=== PATIENT | female | born 1960 | race Asian ===

== ENCOUNTER 2017-12-06 14:47 | Emergency (ER) | payer BC ==
[2017-12-06 15:46] VITALS: BP 174/66
--- NOTE | 2017-12-06 16:10 | EDM.PDOC ---
ED HPI GENERAL MEDICAL PROBLEM - General Chief Complaint: Eye Problems Stated Complaint: RT EYE PAIN Time Seen by Provider: 12/06/17 16:10 Source of Information: Reports: Patient History Limitations: Reports: No Limitations - History of Present Illness INITIAL COMMENTS - FREE TEXT/NARRATIVE: pt started yesterday with slight redness in thre rt eye. Today it is more swollen and uncomfortable. Onset: Gradual Duration: Hour(s): Location: Reports: Face Associated Symptoms: Reports: No Other Symptoms right eye Pain Score (Numeric/FACES): 3 - Related Data Allergies Allergy/AdvReac Type Severity Reaction Status Date / Time hydroxychloroquine Allergy Rash Verified 12/06/17 15:41 Latex, Natural Rubber Allergy Rash Verified 12/06/17 15:41 radish Allergy Itching Verified 12/06/17 15:41 Home Meds: Home Meds Meloxicam [Meloxicam] 15 mg PO BEDTIME 03/18/15 [History] Gabapentin [Neurontin] 100 mg PO BID 12/06/17 [History] Lisinopril/Hydrochlorothiazide [Lisinopril-Hctz 10-12.5 mg Tab] 1 tab PO DAILY 12/06/17 [History] Potassium Chloride 10 meq PO BID 12/06/17 [History] Past Medical History HEENT History: Reports: Other (See Below) Other HEENT History: seasonal allergies Cardiovascular History: Reports: Hypertension Genitourinary History: Reports: Renal Calculus Musculoskeletal History: Reports: Osteoarthritis - Past Surgical History Cardiovascular Surgical History: Reports: None Female Surgical History: Reports: Kidney stone extraction Social & Family History - Tobacco Use Smoking Status *Q: Never Smoker Second Hand Smoke Exposure: No - Alcohol Use Days Per Week of Alcohol Use: 0 - Recreational Drug Use Recreational Drug Use: No ED ROS GENERAL - Review of Systems Review Of Systems: See Below Constitutional: Reports: No Symptoms HEENT: Reports: Eye Pain Respiratory: Reports: No Symptoms Cardiovascular: Reports: No Symptoms Endocrine: Reports: No Symptoms GI/Abdominal: Reports: No Symptoms : Reports: No Symptoms Musculoskeletal: Reports: No Symptoms ED EXAM GENERAL W FULL EYE - Physical Exam Exam: See Below Text/Narrative:: pt arrived with redness in the medial conjuntivia. She has a small lump on the inner edge of the rt eye. The inside of the lower lid is swollen. Exam Limited By: No Limitations General Appearance: Alert, Anxious, Other ( pupils are equal and reactive. Her lower lid on the rt is swollen. There is a sty like nodule on the inner lower lid. The inner portion of the lower lid is swollen. There is not alot of purulent drainage. ) Ears: Normal TMs Nose: Normal Inspection Throat/Mouth: Normal Inspection Head: Atraumatic Neck: Normal Inspection Course - Vital Signs Last Recorded V/S: Last Vital Signs Temp 36 C 12/06/17 15:45 Pulse 54 L 12/06/17 15:45 Resp 12 12/06/17 15:45 BP 174/66 H 12/06/17 15:45 Pulse Ox 99 12/06/17 15:45 Departure - Departure Time of Disposition: 16:08 Disposition: Home, Self-Care 01 Condition: Fair Clinical Impression: Acute bacterial conjunctivitis, Sty, external - Discharge Information Referrals: Eboni Crain MD [Primary Care Provider] - Forms: ED Department Discharge Care Plan Goals: moist warm packs to the rt eye, gentamycin eye drops to rt eye, --tid, keflex 500mg tid for 1 week.
== END 2017-12-06 16:20 | disposition home or self-care (01) ==
LOC: JP.ED 14:47
DX: H00.022 Hordeolum internum right lower eyelid (principal); H10.31 Unspecified acute conjunctivitis, right eye; Z91.040 Latex allergy status; Z88.8 Allergy status to other drugs, medicaments and biological substances; Z91.018 Allergy to other foods; Z79.899 Other long term (current) drug therapy
CPT/HCPCS: 99283

== ENCOUNTER 2018-06-04 19:55 | Emergency (ER) | payer BC ==
[2018-06-04] MEDS ORDERED: Sodium Chloride 0.9% 1,000 ML IV SCH (21:00)
[2018-06-04] MEDS ORDERED: Ondansetron 4 MG/2 ML SDV IVPUSH ONE (21:01)
[2018-06-04] MEDS ORDERED: Meclizine 25 MG Tab PO ONE (21:01)
[2018-06-04 22:04] VITALS: BP 141/62
--- NOTE | 2018-06-04 23:53 | EDM.PDOC ---
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 concerns it may be her blood pressure. worried because her Father just had a stroke. Also may be another ear infection , as this is the same type of symptoms. positive nausea, near vomiting, no diarrhea, no rash. Onset: Sudden Duration: Hour(s):, Constant Location: Reports: Head Quality: Reports: Same as Previous Episode Improves with: Reports: None Worsens with: Reports: None Associated Symptoms: Reports: No Other Symptoms - Related Data Allergies Allergy/AdvReac Type Severity Reaction Status Date / Time hydroxychloroquine Allergy Rash Verified 06/04/18 20:21 Latex, Natural Rubber Allergy Rash Verified 06/04/18 20:21 radish Allergy Itching Verified 06/04/18 20:21 Home Meds: Home Meds Meloxicam 15 mg PO BEDTIME 03/18/15 [History] Gabapentin [Neurontin] 100 mg PO BID 12/06/17 [History] Potassium Chloride 10 meq PO BID 12/06/17 [History] Lisinopril/Hydrochlorothiazide [Lisinopril-Hctz 20-25 mg Tab] 1 tab PO DAILY [History] Past Medical History HEENT History: Reports: Other (See Below) Other HEENT History: seasonal allergies Cardiovascular History: Reports: Hypertension Genitourinary History: Reports: Renal Calculus Musculoskeletal History: Reports: Osteoarthritis, Other (See Below) Other Musculoskeletal History: Back injection in L5/S1 area - Infectious Disease History Infectious Disease History: Reports: Chicken Pox - Past Surgical History Cardiovascular Surgical History: Reports: None Female Surgical History: Reports: Kidney stone extraction Musculoskeletal Surgical History: Reports: None Social & Family History - Tobacco Use Smoking Status *Q: Never Smoker Second Hand Smoke Exposure: No - Caffeine Use Caffeine Use: Reports: Coffee - Recreational Drug Use Recreational Drug Use: No - Living Situation & Occupation Living situation: Reports: , with Family (lives with in [place], [place]. has no children.) ED ROS GENERAL - Review of Systems Review Of Systems: See Below Constitutional: Reports: Other (vertigo) HEENT: Reports: Ear Pain, Vertigo Respiratory: Reports: No Symptoms Cardiovascular: Reports: No Symptoms Endocrine: Reports: No Symptoms GI/Abdominal: Reports: Nausea Musculoskeletal: Reports: Other (chronic pain in back and bilateral hands.) Skin: Reports: No Symptoms Neurological: Reports: Dizziness Psychiatric: Reports: No Symptoms Hematologic/Lymphatic: Reports: No Symptoms Immunologic: Reports: No Symptoms ED EXAM, GENERAL - Physical Exam Exam: See Below Exam Limited By: No Limitations Eye Exam: Bilateral Eye: Normal Inspection Ears: Normal External Exam, Other (canal red, no ear wax noted. right TM pink, bony landmarks present, left TM red and bulging) Ear Exam: Right Ear: Canal Normal (left ear canal with redness), Left Ear: TM normal (red and bulging) Nose: Normal Inspection, Normal Mucosa, No Blood Throat/Mouth: Normal Inspection, Normal Lips, Normal Teeth, Normal Gums, Normal Oropharynx, Normal Voice, No Airway Compromise Head: Atraumatic, Normocephalic Neck: Normal Inspection, Supple, Non-Tender, Full Range of Motion Respiratory/Chest: No Respiratory Distress, Lungs Clear, Normal Breath Sounds, No Accessory Muscle Use, Chest Non-Tender Cardiovascular: Normal Peripheral Pulses, Regular Rate, Rhythm, No Edema, No Gallop, No JVD, No Murmur, No Rub Peripheral Pulses: 2+: Radial (L), Radial (R) GI/Abdominal: Normal Bowel Sounds, Soft, Non-Tender, No Organomegaly, No Distention, No Abnormal Bruit, No Mass Back Exam: Normal Inspection, Full Range of Motion Extremities: Normal Inspection, Normal Range of Motion, Non-Tender, Normal Capillary Refill, No Pedal Edema Neurological: Alert, Oriented, CN II-XII Intact, Normal Cognition, Normal Gait, Normal Reflexes, No Motor/Sensory Deficits Psychiatric: Normal Affect, Normal Mood Skin Exam: Warm, Dry, Intact, Normal Color, No Rash Lymphatic: No Adenopathy Course - Vital Signs Last Recorded V/S: Last Vital Signs Temp 35.7 C 06/04/18 22:02 Pulse 62 06/04/18 22:02 Resp 12 06/04/18 22:02 BP 141/62 H 06/04/18 22:02 Pulse Ox 100 06/04/18 22:02 - Orders/Labs/Meds Labs: Laboratory Tests 06/04/18 06/04/18 06/04/18 Range/Units 21:01 21:01 22:23 WBC 7.0 (4.5-11.0) K/uL RBC 3.80 (3.30-5.50) M/uL Hgb 11.7 L (12.0-15.0) g/dL Hct 34.8 L (36.0-48.0) % MCV 92 (80-98) fL MCH 31 (27-31) pg MCHC 34 (32-36) % Plt Count 282 (150-400) K/uL Neut % (Auto) 66 (36-66) % Lymph % (Auto) 25 (24-44) % [place] % (Auto) 7 H (2-6) % Eos % (Auto) 2 (2-4) % Baso % (Auto) 0 (0-1) % Sodium 140 (140-148) mmol/L Potassium 3.7 (3.6-5.2) mmol/L Chloride 104 (100-108) mmol/L Carbon Dioxide 31 (21-32) mmol/L Anion Gap 4.6 L (5.0-14.0) mmol/L BUN 38 H (7-18) mg/dL Creatinine 0.9 (0.6-1.0) mg/dL Est Cr Clr Drug Dosing 50.73 mL/min Estimated GFR (MDRD) > 60 (>60) Glucose 115 H (74-106) mg/dL Calcium 9.5 (8.5-10.1) mg/dL Total Bilirubin 0.4 (0.2-1.0) mg/dL AST 22 (15-37) U/L ALT 38 (12-78) U/L Alkaline Phosphatase 71 (46-116) U/L Troponin I < 0.017 (0.000-0.056) ng/mL Total Protein 7.6 (6.4-8.2) g/dL Albumin 3.9 (3.4-5.0) g/dL Globulin 3.7 H (2.3-3.5) g/dL Albumin/Globulin Ratio 1.1 L (1.2-2.2) TSH, Ultra Sensitive 1.180 (0.358-3.740) uIU/mL Urine Color Yellow Urine Appearance Clear Urine pH 8.0 (4.5-8.0) Ur Specific [place] 1.015 (1.008-1.030) Urine Protein Negative (NEGATIVE) mg/dL Urine Glucose (UA) Normal (NEGATIVE) mg/dL Urine Ketones Negative (NEGATIVE) mg/dL Urine Occult Blood Negative (NEGATIVE) Urine Nitrite Negative (NEGATIVE) Urine Bilirubin Negative (NEGATIVE) Urine Urobilinogen Normal (NORMAL) mg/dL Ur Leukocyte Esterase Negative (NEGATIVE) Urine RBC Not seen (0-5) Urine WBC Not seen (0-5) Ur Epithelial Cells Not seen Amorphous Sediment Not seen Urine Bacteria Not seen Urine Mucus Not seen Meds: Medications Discontinued Medications Generic Name Dose Route Start Last Admin Trade Name Freq PRN Reason Stop Dose Admin Sodium Chloride 1,000 mls @ 500 mls/hr 06/04/18 21:00 06/04/18 22:16 Normal Saline IV 999 mls/hr ASDIRECTED EMRE Infusion Meclizine HCl 25 mg 06/04/18 21:01 06/04/18 21:55 Antivert PO 06/04/18 21:02 25 mg ONETIME ONE Administration Ondansetron HCl 4 mg 06/04/18 21:01 06/04/18 21:52 Zofran IVPUSH 06/04/18 21:02 4 mg ONETIME ONE Administration - Re-Assessments/Exams Free Text/Narrative Re-Assessment/Exam: Given IV fluids, Meclizine 25mg po, Zofran 4mg IV; symptoms resolved Labs; show mild anemia hgb 11.7, mild dehydration a; left ear infection, mild dehydration p; after IV fluids and medication, Mrs. Cantu symptoms resolved, and she is ready for discharge to home. Departure - Departure Time of Disposition: 00:10 Disposition: Home, Self-Care 01 Clinical Impression: Vertigo of central origin of left ear - Discharge Information *PRESCRIPTION DRUG MONITORING PROGRAM REVIEWED*: No *COPY OF PRESCRIPTION DRUG MONITORING REPORT IN PATIENT CLARISSA: No Instructions: Vertigo, [id number] Referrals: Eboni Crain MD [Primary Care Provider] - Forms: ED Department Discharge Care Plan Goals: Vertigo, left ear infection -zithromax 2 tab today then 1 tab daily -meclizine 25mg by mouth every 8 hours as needed for dizziness -push fluids, rest advise to follow up with Primary Care Provider next week return to ER or Urgent Care for any increase in dizziness, fever, chills, nausea , vomiting, diarrhea or any concerns. - Problem List & Annotations (1) Vertigo of central origin of left ear SNOMED Code(s): 09525981 Code(s): H81.42 - VERTIGO OF CENTRAL ORIGIN, LEFT EAR Status: Acute Priority: High - Problem List Review Problem List Initiated/Reviewed/Updated: Yes - Assessment/Plan Plan: Vertigo, left ear infection -zithromax 2 tab today then 1 tab daily -meclizine 25mg by mouth every 8 hours as needed for dizziness -push fluids, rest advise to follow up with Primary Care Provider next week return to ER or Urgent Care for any increase in dizziness, fever, chills, nausea , vomiting, diarrhea or any concerns.
== END 2018-06-05 00:10 | disposition home or self-care (01) ==
LOC: JP.ED 19:55
DX: H81.42 Vertigo of central origin, left ear (principal); I10 Essential (primary) hypertension; Z88.8 Allergy status to other drugs, medicaments and biological substances; Z91.040 Latex allergy status; Z79.899 Other long term (current) drug therapy
CPT/HCPCS: 36415; 80053; 81001; 84443; 84484; 85025; 96361; 96374; 99284; A9270; J2405; J7030

== ENCOUNTER 2024-04-29 09:41 | Day surgery (SDC) | payer BC ==
[2024-04-29] MEDS ORDERED: fentaNYL 50 MCG/ML SDV ONE (10:05)
[2024-04-29] MEDS ORDERED: Propofol 200 MG/20 ML SDV ONE (10:05)
[2024-04-29] MEDS ORDERED: Midazolam 1 MG/ML 2 ML SDV ONE (10:05)
[2024-04-29] MEDS: Sodium Chloride 0.9% 1,000 ML IV SCH (10:19)
[2024-04-29 12:00] VITALS: BP 128/61; PULSE 61
== END 2024-04-29 12:03 | disposition home or self-care (01) ==
LOC: JP.SDS 09:41
PROVIDERS: ATTEND Surgery
DX: D64.9 Anemia, unspecified (principal); K22.89 Other specified disease of esophagus; I10 Essential (primary) hypertension
CPT/HCPCS: 00813; 43239; 45378; 88305; J2250; J2704; J3010; J7030